=== PATIENT | male | born 1950 | race Caucasian/White ===

== ENCOUNTER → 2021-03-14 12:05 | Outpatient (BNVA) | payer MEDICARE, MEDICAID, SELFPAY | PROVIDERS: Visit Provider Family Medicine | DX: R50.9 Fever, unspecified (principal); J01.00 Acute maxillary sinusitis, unspecified | CPT/HCPCS: 87071; 87400; 87880 ==

== ENCOUNTER → 2021-07-14 17:34 | Outpatient (BNVA) | payer MEDICARE, MEDICAID, SELFPAY | PROVIDERS: PCP Family Medicine; Visit Provider Family Medicine | DX: R53.83 Other fatigue (principal); J06.9 Acute upper respiratory infection, unspecified; R05.9 Cough, unspecified | CPT/HCPCS: 80053; 85025; 87635 ==

== ENCOUNTER 2021-09-07 07:23 | Day surgery (SDC) | payer MEDICARE, MEDICAID, SELFPAY ==
[2021-07-18 08:24] VITALS: BMI 27.0
[2021-09-06 09:16] VITALS: BMI 26.2
[2021-09-07 07:50] VITALS: BP 120/77; PULSE 110; RESP 18; TEMP 36.2; O2SAT 93
[2021-09-07] MEDS: sodium chloride 0.9% 1,000 ML 30 ML IV (08:01)
--- NOTE | 2021-09-07 08:17 | ANES.PREANE2 ---
Pre-Anesthetic Assessment Height/Weight: Height 1.52 m Weight 60.781 kg Temp Pulse Resp BP Pulse Ox 97.1 F L 110 H 18 120/77 93 09/07/21 07:50 09/07/21 07:50 09/07/21 07:50 09/07/21 07:50 09/07/21 07:50 Preop Diagnosis: diagnostic Operation Date: 09/07/21 09:45 Proposed Procedures p EGD Dilation W/ Balloon [id number]/k22.2/z85.038(Not Applicable) - Guillermo Guan MD s Colonoscopy(Not Applicable) - Guillermo Guan MD Familial anesthetic complications: None Was Beta Danielle taken within 24 hours: N/A Was Clonidine taken within 24 hours: N/A Last intake: Intake Last Liquid Date 09/06/21 Last Liquid Time 16:00 Last Solid Date 09/05/21 Last Solid Time 21:00 Social No alcohol and No tobacco Exam alert, oriented x 3, clear to auscultation bilaterally and regular rate & rhythm Airway Submandibular: within normal limits Cervical ROM: within normal limits Mallampati: Class I Dentition: false and full History/ROS No significant complaints Pulmonary None reported CV/HEM None reported None reported Hepatic None reported GI Gastroesophageal Reflux Disease (well controlled ) Esophageal stricture Colon cancer hx Metabolic None reported Musc/skel None reported Neuropsych None reported Anesthetic Plan ASA status: 2 Anesthesia: Anesthesia Evaluation and General Other: We discussed risk and benefits of general anesthesia including PONV, sore throat (sometimes severe), corneal abrasion, positioning and peripheral nerve injuries, life threatening allergic reaction, post operative ICU admission requiring prolonged intubation, stroke, heart attack, , and rare incidences of recall. Patient consents to proceed with general anesthesia. Risk of > 500 ml blood loss (7ml/kg in children): No Medications/Allergies Home Medications Medication Instructions Recorded Confirmed Last Taken Type pantoprazole 20 mg tablet,delayed 20 mg PO BID #60 tab 09/06/21 09/07/21 09/06/21 Rx release (Protonix) Allergies Allergy/AdvReac Type Severity Reaction Status Date / Time No Known Allergies Allergy Verified 09/07/21 07:51 Current Medications Generic Name Dose Route Start Last Admin Trade Name Freq PRN Reason Stop Dose Admin Sodium Chloride 1,000 mls @ 30 mls/hr 09/07/21 08:00 09/07/21 08:01 Sodium Chloride 0.9% IV 09/08/21 07:59 30 mls/hr .Q24H ROCK Administration PFSH Anesthesia Medical History Esophageal stricture GERD (gastroesophageal reflux disease) History of colon cancer Surgical History History of appendectomy History of back surgery History of colonoscopy History of esophagogastroduodenoscopy (EGD) With dilation History of partial surgical removal of colon Social History Smoking and tobacco status: never smoked Alcohol intake: never Data Anesthesia Cardiac Studies: No Data to Display
--- NOTE | 2021-09-07 09:20 | P.HP_ITS ---
Same Day Surgery H&P Indication for Procedure/HPI DATE OF PROCEDURE: September 07, 2021 CHIEF COMPLAINT/INDICATIONFOR SURGICAL PROCEDURE: egd/colon PREOP DIAGNOSIS: diagnostic PLANNED PROCEDURE: Operation Date: 09/07/21 09:45 Proposed Procedures p EGD Dilation W/ Balloon [id number]/k22.2/z85.038(Not Applicable) - Guillermo Guan MD s Colonoscopy(Not Applicable) - Guillermo Guan MD Medications/Allergies* Allergies/Adverse Reactions Allergy/AdvReac Type Severity Reaction Status Date / Time No Known Allergies Allergy Verified 09/07/21 07:51 Current Medications: Generic Name Dose Route Start Last Admin Trade Name Freq PRN Reason Stop Dose Admin Sodium Chloride 1,000 mls @ 30 mls/hr 09/07/21 08:00 09/07/21 08:01 Sodium Chloride 0.9% IV 09/08/21 07:59 30 mls/hr .Q24H ROCK Administration Pertinent History/Comorbid Conditions* Medical History (Updated 07/14/21 @ 18:02 by Aracely Cole MD) Esophageal stricture GERD (gastroesophageal reflux disease) History of colon cancer Surgical History (Updated 06/14/21 @ 14:28 by Guillermo Guan MD) History of appendectomy History of back surgery History of colonoscopy History of esophagogastroduodenoscopy (EGD) With dilation History of partial surgical removal of colon Social History Smoking and tobacco status: never smoked Alcohol intake: never Pertinent Exam Findings alert, oriented x 3 and regular rate & rhythm Recommendations Surgery/Procedure today Coding Level of Care Code 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
[2021-09-07 09:59] VITALS: BP 125/86; PULSE 97; RESP 16; TEMP 36.1; O2SAT 92
[2021-09-07 10:12] VITALS: BP 122/81; PULSE 93; RESP 18; O2SAT 97
--- NOTE | 2021-09-07 15:06 | ANE.PACU2 ---
Inpatient post-anesthesia follow up: Airway intact: Yes Vital signs: Temperature 97.0 F Pulse Rate 93 Respiratory Rate 18 Blood Pressure 122/81 Pulse Oximetry 97 Oxygen Delivery Me thod Room Air Oxygen Flow Rate 6 Fraction of Inspir ed Oxygen Hydration adequate: Yes Nausea and vomiting: No Pain level: 1 Mental status: Baseline
== END 2021-09-07 10:37 | disposition home or self-care (01) ==
PROVIDERS: PCP Family Medicine; Visit Provider Surgery
PROC: 0DJD8ZZ Inspection of Lower Intestinal Tract, Via Natural or Artificial Opening Endoscopic (ICD-10-PCS; CPT 45378; 2021-09-07 08:45)
DX: Z85.038 Personal history of other malignant neoplasm of large intestine (principal); K44.9 Diaphragmatic hernia without obstruction or gangrene; K29.50 Unspecified chronic gastritis without bleeding; B96.81 Helicobacter pylori [H. pylori] as the cause of diseases classified elsewhere; K22.2 Esophageal obstruction
CPT/HCPCS: 43239; 43249; 45378; 88305; J2704; J7030

== ENCOUNTER 2021-09-15 08:42 | Outpatient (CLI) | payer MEDICARE, MEDICAID, SELFPAY ==
--- NOTE | 2021-09-15 09:00 | CT_ITS ---
WS: [id number] CT ABDOMEN AND PELVIS WITH CONTRAST HISTORY: colon cancer TECHNIQUE: Imaging performed of the abdomen and pelvis with IV contrast. Single phase imaging of the abdomen. Coronal and sagittal reformats are submitted. All CT scans at [facility] use at [address] one of these dose optimization techniques: automated exposure control; mA and/or kV adjustment per patient size (includes targeted exams where dose is matched to clinical indication); or iterative re construction. IV CONTRAST: Visipaque 320; 75 mL IV. Only delayed imaging was performed. No portal venous phase. Del ayed imaging due to difficulty obtaining IV access and patient's anxiety. Oral contrast: Yes. DLP: 864.64 mGy.cm COMPARISON: None available. Lower thorax: Emphysematous changes at the lung bases. Linear scar or atelectasis bilaterally. Heart is normal size. Small hiatal hernia. Liver/biliary system: Normal size with no intrahepatic dilatation. Gallbladder: Contracted gallbladder. No adjacent inflammation. Pancreas: Normal size pancreas and pancreatic duct. No adjacent inflammation. Spleen: Normal size spleen. No mass or infarct. Adrenal glands: Normal. Right kidney: Normal. Left kidney: Normal. Aorta: Mild atherosclerosis with no aneurysm. Lymphadenopathy: None. Free fluid: None. GI tract: Normally distended stomach. No small bowel obstruction. Prior appendectomy. Partial colecto my. Surgical anastomotic site distally near the sigmoid. There is a focal narrowing of approximately 50% at the surgical anastomotic site. No recurrent mass is identified. Stenosis is not causing a sign ificant obstruction. Caliber of the colon proximal and distal to the surgical anastomosis through the focal narrowing is similar. Focal large diverticulum filling with oral contrast at the surgical anas tomosis. Abdominal wall: Unremarkable abdominal wall. No hernia. Pelvis: No free fluid or adenopathy. Bones: Complete loss of disc space at L2-3 and L3-4 with partial bone fusion. L4 retrolisthesis by 5 mm. Additional surgical hardware is incompletely visualized in the lower thoracic spine. CT/CT abdomen pelvis w con* [id number] IMPRESSION: 1. Partial colectomy. Ileocolic anastomosis deep within the pelvis with a mild stenosis but no obstruction. There is a large diverticulum at the surgical rudi stomotic site. No recurrent mass. No adenopathy. 2. Contracted gallbladder. 3. No metastatic lesions within the adrenal glands or liver.
[2021-09-15 10:04] LABS: Blood Urea Nitrogen 11 mg/dL (8-23)
[2021-09-15] MEDS: barium sulfate 450 mL Oral Susp PO (10:11)
[2021-09-15] MEDS: iodixanol 320 mg/mL 100mL Btl IV (10:31)
== END 2021-09-15 08:43 | disposition home or self-care (01) ==
LOC: RAD 08:42
PROVIDERS: PCP Family Medicine; Visit Provider Surgery
DX: C18.9 Malignant neoplasm of colon, unspecified (principal)
CPT/HCPCS: 74177; 82565; 84520

== ENCOUNTER → 2021-09-21 09:47 | Outpatient (BNVA) | payer MEDICARE, MEDICAID, SELFPAY | PROVIDERS: PCP Family Medicine; Visit Provider Surgery | DX: Z09 Encounter for follow-up examination after completed treatment for conditions other than malignant neoplasm (principal); K22.2 Esophageal obstruction; C18.9 Malignant neoplasm of colon, unspecified | CPT/HCPCS: 99213 ==

== ENCOUNTER → 2023-01-19 14:11 | Outpatient (BNVA) | payer MEDICARE, MEDICAID, SELFPAY | PROVIDERS: PCP Family Medicine; Visit Provider Nurse Practitioner Family | DX: J06.9 Acute upper respiratory infection, unspecified (principal) | CPT/HCPCS: 87426 ==

== ENCOUNTER → 2024-04-14 13:40 | Outpatient (BNVA) | payer MEDICARE, MEDICAID, SELFPAY | PROVIDERS: PCP Nurse Practitioner Family; Visit Provider Nurse Practitioner Family | DX: Z13.6 Encounter for screening for cardiovascular disorders (principal); K21.9 Gastro-esophageal reflux disease without esophagitis; R19.7 Diarrhea, unspecified | CPT/HCPCS: 80053; 80061; 84443; 85025 ==